=== PATIENT | male | born 1950 | race Caucasian/White ===

== ENCOUNTER 2024-10-26 09:42 | Outpatient (CLI) | payer MEDICARE | END 2024-10-26 23:59 | disposition home or self-care (01) | LOC: RAD 09:42 | PROVIDERS: ATTEND Podiatrist Foot & Ankle Surgery | DX: M19.071 Primary osteoarthritis, right ankle and foot (principal); M25.571 Pain in right ankle and joints of right foot; M25.471 Effusion, right ankle; M79.671 Pain in right foot; T84.498A Other mechanical complication of other internal orthopedic devices, implants and grafts, initial encounter; X58.XXXA Exposure to other specified factors, initial encounter; Y84.8 Other medical procedures as the cause of abnormal reaction of the patient, or of later complication, without mention of misadventure at the time of the procedure; Y92.89 Other specified places as the place of occurrence of the external cause | CPT/HCPCS: 73700 ==

== ENCOUNTER 2025-06-23 09:48 | Outpatient (CLI) | payer MEDICARE ==
--- NOTE | 2025-06-23 12:33 | RADIOLOGY REPORT ---
CLINICAL INDICATION: PAIN IN RIGHT ANKLE AND JOINTS OF RIGHT FOOT TECHNIQUE: Noncontrast CT of the right ankle was performed. Sagittal and coronal reformatted images a re provided. COMPARISON: CT CT LOWER EXTREMITY on DOS: 10/26/24 CT Dose: CTDI volume is 14.4 mGy. Dose-length product is 318.2 mGy*cm FINDINGS: Patient is status post ankle joint replacement. There is increased lucency surrounding the pegs of th e tibial component measuring up to 8 mm previously measuring up to 3 mm consistent with progression o f hardware loosening. There is no lucency surrounding the tibial component of the hardware. The poly ethylene liner is not displaced. Tibiotalar alignment is maintained. There is no periprosthetic fract ure. Ossicles inferior to the lateral malleolus in the medial malleolus unchanged. Mild soft tissue s welling in the medial and lateral ankle. No large joint effusion. There is dorsal soft tissue edema i n the ankle. IMPRESSION: 1. 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 No periprosthetic fracture or abnormal alignment. 2. Mild soft tissue swelling in the ankle. All CT scans at this medical facility are performed using dose modulation techniques as appropriate t o a performed exam including the following: Automated exposure control was utilized; adjustment of th e MA and/or KV according to patient size; and use of iterative reconstruction technique.
== END 2025-06-23 23:59 | disposition home or self-care (01) ==
LOC: RAD 09:48
PROVIDERS: ATTEND Podiatrist Foot & Ankle Surgery
DX: M25.571 Pain in right ankle and joints of right foot (principal); M79.671 Pain in right foot; M19.071 Primary osteoarthritis, right ankle and foot; M25.471 Effusion, right ankle; T84.498A Other mechanical complication of other internal orthopedic devices, implants and grafts, initial encounter; M79.89 Other specified soft tissue disorders; R60.0 Localized edema; Z98.890 Other specified postprocedural states; Y82.8 Other medical devices associated with adverse incidents
CPT/HCPCS: 73700